=== PATIENT | female | born 1960 | race Native Hawaiian/Other Pacific Islander ===

== ENCOUNTER 2016-05-15 11:46 | Outpatient (CLI) | payer OTHER | END 2016-05-15 12:46 | disposition home or self-care (01) | LOC: RAD 11:46 | DX: M25.512 Pain in left shoulder (principal) ==

== ENCOUNTER 2017-02-26 13:45 | Outpatient (CLI) | payer OTHER | END 2017-02-26 19:37 | disposition home or self-care (01) | LOC: MAMMO 13:45 | DX: Z12.31 Encounter for screening mammogram for malignant neoplasm of breast (principal) ==

== ENCOUNTER 2018-04-06 11:36 | Outpatient (CLI) | payer OTHER | END 2018-04-06 20:26 | disposition home or self-care (01) | LOC: MAMMO 11:36 | DX: Z12.31 Encounter for screening mammogram for malignant neoplasm of breast (principal) ==

== ENCOUNTER 2018-07-28 09:12 | Outpatient (CLI) | payer OTHER ==
[2018-07-28 09:27] LABS: PLATELET COUNT 260 K/uL (152-353)
[2018-07-28 09:44] LABS: POTASSIUM 4.1 mmol/L (3.6-5.2)
== END 2018-07-28 23:14 | disposition home or self-care (01) ==
LOC: LABW 09:12
PROVIDERS: Internal Medicine
DX: I10 Essential (primary) hypertension (principal); E78.49 Other hyperlipidemia; E03.8 Other specified hypothyroidism
CPT/HCPCS: 36415; 80053; 80061; 84439; 84443; 85027

== ENCOUNTER 2018-11-24 09:51 | Outpatient (CLI) | payer OTHER ==
[2018-11-24 10:52] LABS: PLATELET COUNT 253 K/uL (152-353)
[2018-11-24 11:18] LABS: POTASSIUM 4.4 mmol/L (3.6-5.2)
== END 2018-11-24 23:59 | disposition home or self-care (01) ==
LOC: LABW 09:51
PROVIDERS: Nurse Practitioner
DX: M79.605 Pain in left leg (principal); E03.8 Other specified hypothyroidism; I10 Essential (primary) hypertension; R06.02 Shortness of breath
CPT/HCPCS: 36415; 80053; 83880; 84439; 84443; 85027

== ENCOUNTER 2018-11-25 14:38 | Outpatient (CLI) | payer OTHER | END 2018-11-25 19:49 | disposition home or self-care (01) | LOC: RAD 14:38 | DX: M79.605 Pain in left leg (principal); E03.8 Other specified hypothyroidism; I10 Essential (primary) hypertension; R06.02 Shortness of breath ==

== ENCOUNTER 2019-09-06 10:31 | Outpatient (CLI) | payer OTHER | END 2019-09-06 23:10 | disposition home or self-care (01) | LOC: RAD 10:31 | DX: N95.1 Menopausal and female climacteric states (principal); Z13.820 Encounter for screening for osteoporosis; N95.8 Other specified menopausal and perimenopausal disorders ==

== ENCOUNTER 2020-04-28 09:54 | Outpatient (CLI) | payer OTHER | END 2020-04-28 23:00 | disposition home or self-care (01) | LOC: RAD 09:54 | PROVIDERS: ATTEND Internal Medicine | DX: R06.02 Shortness of breath (principal) ==

== ENCOUNTER 2020-07-22 12:30 | Emergency (ER) | payer OTHER ==
[~2020-07-22] VITALS: Ht 152.4 cm; Wt 127.0 kg
[2020-07-22 13:41] VITALS: BP 167/88; TEMP 98.1
== END 2020-07-22 13:43 | disposition home or self-care (01) ==
LOC: ED 12:30
PROC: 0HQKXZZ Repair Right Lower Leg Skin, External Approach (ICD-10-PCS; principal; 2020-07-22)
DX: S81.811A Laceration without foreign body, right lower leg, initial encounter (principal); W22.8XXA Striking against or struck by other objects, initial encounter; Y92.89 Other specified places as the place of occurrence of the external cause
CPT/HCPCS: 90471; 90715; 99283

== ENCOUNTER 2020-10-20 12:48 | Emergency (ER) | payer OTHER ==
[~2020-10-20] VITALS: Ht 152.4 cm; Wt 131.5 kg
[2020-10-20 14:11] LABS: PLATELET COUNT 281 K/uL (152-353)
[2020-10-20 14:18] LABS: POTASSIUM 4.6 mmol/L (3.6-5.2)
[2020-10-20 15:45] VITALS: BP 150/54; TEMP 98.6
== END 2020-10-20 15:50 | disposition home or self-care (01) ==
LOC: ED 12:48
PROVIDERS: Family Medicine
DX: M47.816 Spondylosis without myelopathy or radiculopathy, lumbar region (principal); R10.31 Right lower quadrant pain
CPT/HCPCS: 80053; 81000; 85027; 96372; 99283; J1885

== ENCOUNTER 2020-11-07 12:38 | Outpatient (CLI) | payer OTHER | END 2020-11-07 19:27 | disposition home or self-care (01) | LOC: MAMMO 12:38 | PROVIDERS: ATTEND Internal Medicine | DX: R06.02 Shortness of breath (principal); Z12.31 Encounter for screening mammogram for malignant neoplasm of breast ==

== ENCOUNTER 2021-11-05 12:58 | Outpatient (CLI) | payer OTHER | END 2021-11-05 19:01 | disposition home or self-care (01) | LOC: RAD 12:58 | PROVIDERS: ATTEND Internal Medicine | DX: Z13.820 Encounter for screening for osteoporosis (principal); N95.8 Other specified menopausal and perimenopausal disorders ==

== ENCOUNTER 2021-11-12 11:42 | Outpatient (CLI) | payer OTHER | END 2021-11-12 19:34 | disposition home or self-care (01) | LOC: MAMMO 11:42 | PROVIDERS: ATTEND Internal Medicine | DX: Z12.31 Encounter for screening mammogram for malignant neoplasm of breast (principal) ==

== ENCOUNTER 2022-07-23 10:35 | Outpatient (CLI) | payer OTHER | END 2022-07-23 18:58 | disposition home or self-care (01) | LOC: RAD 10:35 | PROVIDERS: ATTEND Internal Medicine | DX: M06.4 Inflammatory polyarthropathy (principal); M25.559 Pain in unspecified hip; M47.816 Spondylosis without myelopathy or radiculopathy, lumbar region; M54.51 Vertebrogenic low back pain; M79.643 Pain in unspecified hand ==

== ENCOUNTER 2023-05-16 08:05 | Outpatient (CLI) | payer OTHER | END 2023-05-16 19:59 | disposition home or self-care (01) | LOC: US 08:05 | PROVIDERS: ATTEND Internal Medicine | DX: R22.1 Localized swelling, mass and lump, neck (principal) ==